=== PATIENT | male | born 1980 | race Caucasian/White ===

== ENCOUNTER → 2018-08-19 | Outpatient (CLI) | payer BC ==
--- NOTE | 2018-08-19 11:18 | US ---
EXAMINATION TYPE: US abdomen limited DATE OF EXAM: 08/19/2018 COMPARISON: NONE CLINICAL HISTORY: R10.11 RUQ Abdominal Pain. RUQ pain ongoing for 3 months EXAM MEASUREMENTS: Liver Length: 21.4 cm Gallbladder Wall: 0.3 cm CBD: N/A Right Kidney: 11.0 x 5.8 x 5.3 cm *morbidly obese patient that is difficult to penetrate, very suboptimal exam Pancreas: not seen due to habitus and bowel gas Liver: very difficult to penetrate, appears enlarged, not able to fully assess Gallbladder: wnl Evidence for sonographic Madison's sign: no CBD: unable to discern duct Right Kidney: very limited imaging IMPRESSION: 1. Limited exam as discussed above demonstrates no definite acute process as visualized. 2. Pattern of liver can be seen with fatty infiltration, hepatitis or diffuse hepatocellular disease.
== END | disposition home or self-care (01) ==
LOC: RADUSWWP 09:32
PROVIDERS: ATTEND Family Medicine
DX: R10.11 Right upper quadrant pain (principal)
CPT/HCPCS: 76705

== ENCOUNTER → 2020-03-14 | Outpatient (CLI) | payer BC | END | disposition home or self-care (01) | LOC: LABWHC1 11:30 | PROVIDERS: ATTEND Emergency Medicine | DX: Z20.828 Contact with and (suspected) exposure to other viral communicable diseases (principal) | CPT/HCPCS: U0003; C9803 ==